=== PATIENT | female | born 1945 | race African-American/Black ===

== ENCOUNTER 2017-06-23 21:27 | Inpatient (IN) | payer MEDICARE, MEDICAID ==
[~2017-06-23] VITALS: Ht 162.6 cm; Wt 88.2 kg
[2017-06-23 22:40] LABS: EOSINOPHILS % 2.2 % (0.0-5.0); HEMATOCRIT. 49.5 % (36.0-48.0); HEMOGLOBIN. 16.6 g/dL (12.0-16.0); LYMPHOCYTES % 30.3 % (20.0-50.0); MEAN CORPUSCULAR HEMOGLOBIN 29.7 pg (28.0-32.0); MEAN CORPUSCULAR VOLUME 88.8 fL (81.0-99.0); MEAN PLATELET VOLUME 9.6 fl (7.4-10.4); MONOCYTES % 10.9 % (2.0-8.0); NEUTROPHILS % 55.6 % (40.0-76.0); PLATELET 238 x1000/uL (130-400); RED BLOOD CELL COUNT 5.57 mill/uL (4.2-5.4); RED CELL DISTRIBUTION WIDTH 14.6 % (11.6-14.6)
[2017-06-23 22:47] LABS: PROTHROMBIN TIME 10.7 sec (9.4-11.6)
[2017-06-23 22:54] LABS: CARBON DIOXIDE 27 mEq/L (21-32); CHLORIDE 112 mEq/L (98-107); TROPONIN I 0.03 ng/mL (0.00-0.04)
[2017-06-23] MEDS ORDERED: ASPIRIN 81MG TABLET PO ONE (23:00)
[2017-06-23] MEDS ORDERED: HYDROCODONE/ACETAMINOPHEN 5/325MG TABLET PO PRN (23:30)
[2017-06-23] MEDS ORDERED: MORPHINE SULFATE 2 MG/ML CPJ (NOT FOR IM USE) IV PRN (23:30)
[2017-06-23] MEDS ORDERED: ACETAMINOPHEN 325MG TABLET PO PRN (23:30)
[2017-06-24 04:00] VITALS: BP 169/95
[2017-06-24 04:12] VITALS: BP 169/95
[2017-06-24] MEDS ORDERED: IBUP-2029 (07:42)
[2017-06-24] MEDS ORDERED: CIPR-213 (07:42)
[2017-06-24] MEDS ORDERED: ALPR2TAB97 (07:42)
[2017-06-24] MEDS ORDERED: DOXY100C2 (07:42)
[2017-06-24] MEDS ORDERED: METR500T4 (07:42)
[2017-06-24] MEDS ORDERED: AZIT250T6 (07:42)
[2017-06-24] MEDS ORDERED: ALBU18HF2 (07:42)
[2017-06-24] MEDS ORDERED: LEVO500T89 (07:42)
[2017-06-24] MEDS ORDERED: NIFEDICAL (07:42)
[2017-06-24] MEDS ORDERED: CLON0.2T (07:42)
[2017-06-24] MEDS ORDERED: AMOX-CLAV (07:42)
[2017-06-24] MEDS ORDERED: PANT40TA4 (07:42)
[2017-06-24] MEDS ORDERED: FLUT1DIS2 (07:42)
[2017-06-24] MEDS ORDERED: NIFE60TA64 (07:42)
[2017-06-24] MEDS ORDERED: ARIP20TA9 (07:42)
[2017-06-24] MEDS ORDERED: AMOX500T2 (07:42)
[2017-06-24] MEDS ORDERED: DULO60CA63 (07:42)
[2017-06-24 08:00] VITALS: BP 168/90
[2017-06-24] MEDS: ASPIRIN 81MG EC TABLET PO SCH (08:10)
[2017-06-24] MEDS: FERROUS SULFATE 325MG TABLET PO SCH (08:10)
[2017-06-24] MEDS: ENOXAPARIN 40MG/0.4ML SYR SUBCUT SCH ×2 (08:11→08:14)
[2017-06-24] MEDS ORDERED: POTASSIUM CHLORIDE 20MEQ/PACKET PO SCH (09:00)
[2017-06-24] MEDS ORDERED: IOHEXOL-350 100 ML BOTTLE ONE (09:04)
[2017-06-24] MEDS ORDERED: SODIUM CHLORIDE 0.9% 10ML VIAL ONE (09:04)
[2017-06-24 09:52] LABS: CREATINE KINASE MB FRACTION 2.4 ng/mL (0.5-3.6)
[2017-06-24 12:00] VITALS: BP 156/101
[2017-06-24] MEDS ORDERED: ALBUTEROL (0.083%) 2.5MG/3ML NEB HHN PRN (12:45)
[2017-06-24] MEDS: CLONIDINE 0.1MG TABLET PO PRN ×2 (12:55→22:15)
[2017-06-24] MEDS: FUROSEMIDE 40MG/4ML VIAL IVP SCH (13:02)
[2017-06-24 14:51] LABS: CREATINE KINASE MB FRACTION 2.4 ng/mL (0.5-3.6)
[2017-06-24 16:00] VITALS: BP 142/91
[2017-06-24 20:15] VITALS: BP 157/123
[2017-06-24] MEDS: AMLODIPINE 5MG TABLET PO SCH (21:10)
[2017-06-24 23:20] LABS: CLARITY URINE CLEAR (CLEAR); COLOR URINE YELLOW (YELLOW); GLUCOSE URINE NEGATIVE (NEGATIVE); KETONES URINE NEGATIVE (NEGATIVE); LEUKOCYTE ESTERASE URINE NEGATIVE (NEGATIVE); NITRITE URINE NEGATIVE (NEGATIVE); OCCULT BLOOD URINE 1+ (NEGATIVE); PROTEIN URINE NEGATIVE (NEGATIVE); SPECIFIC GRAVITY URINE 1.041 (1.005-1.030); UROBILINOGEN URINE 0.2 E.U./dL (0.2-1.0)
[2017-06-24 23:40] LABS: *AMPHETAMINES SCREEN URINE NEGATIVE (NEGATIVE); *BARBITURATES SCREEN URINE NEGATIVE (NEGATIVE); *BENZODIAZEPINES SCREEN URINE NEGATIVE (NEGATIVE); *COCAINE SCREEN URINE PRESUMTIVE POSITIVE (NEGATIVE); CANNABINOID URINE SCREEN NEGATIVE (NEGATIVE); METHADONE URINE SCREEN NEGATIVE (NEGATIVE); OPIATES URINE SCREEN NEGATIVE (NEGATIVE); PHENCYCLIDINE URINE SCREEN NEGATIVE (NEGATIVE)
[2017-06-25] VITALS: BP 152/92
[2017-06-25 04:00] VITALS: BP 152/102
[2017-06-25 06:30] LABS: BASOPHILS % 0.7 % (0.0-2.0); EOSINOPHILS % 6.1 % (0.0-5.0); HEMATOCRIT. 48.6 % (36.0-48.0); HEMOGLOBIN. 16.4 g/dL (12.0-16.0); LYMPHOCYTES % 40.8 % (20.0-50.0); MEAN CORPUSCULAR HEMOGLOBIN 30.1 pg (28.0-32.0); MEAN CORPUSCULAR VOLUME 89.6 fL (81.0-99.0); MEAN PLATELET VOLUME 9.4 fl (7.4-10.4); MONOCYTES % 9.6 % (2.0-8.0); NEUTROPHILS % 42.8 % (40.0-76.0); PLATELET 213 x1000/uL (130-400); RED BLOOD CELL COUNT 5.42 mill/uL (4.2-5.4); RED CELL DISTRIBUTION WIDTH 14.4 % (11.6-14.6)
[2017-06-25 07:49] VITALS: BP 182/75
[2017-06-25] MEDS: FERROUS SULFATE 325MG TABLET PO SCH (08:09)
[2017-06-25] MEDS: ASPIRIN 81MG EC TABLET PO SCH (08:09)
[2017-06-25] MEDS: FUROSEMIDE 40MG/4ML VIAL IVP SCH (08:09)
[2017-06-25] MEDS: AMLODIPINE 5MG TABLET PO SCH ×2 (08:09→20:27)
[2017-06-25] MEDS: CLONIDINE 0.1MG TABLET PO PRN ×2 (08:10→18:30)
[2017-06-25] MEDS: ENOXAPARIN 40MG/0.4ML SYR SUBCUT SCH (08:10)
[2017-06-25 08:29] LABS: CARBON DIOXIDE 31 mEq/L (21-32); CHLORIDE 104 mEq/L (98-107); PHOSPHORUS 3.7 mg/dL (2.5-4.9)
[2017-06-25] MEDS ORDERED: REGADENOSON 0.4 MG/5 ML IV NR (09:30)
[2017-06-25] MEDS ORDERED: POTASSIUM CHLORIDE 20MEQ TABLET SR PO NR (09:30)
[2017-06-25] MEDS: HYDRALAZINE HCL 50MG TABLET PO SCH ×2 (10:17→22:08)
[2017-06-25 10:44] LABS: T4 FREE 0.98 ng/dL (0.76-1.46)
[2017-06-25 12:00] VITALS: BP 124/93
[2017-06-25] MEDS: POTASSIUM CHLORIDE 20MEQ TABLET SR PO SCH (12:00)
[2017-06-25] MEDS: METOPROLOL TARTRATE 25MG TABLET PO SCH ×2 (13:40→22:07)
[2017-06-25] MEDS ORDERED: LEVOFLOXACIN 500MG PREMIX 100 ML IV SCH (14:00)
[2017-06-25 15:09] LABS: CREATINE KINASE 103 IU/L (26-192); TROPONIN I < 0.02 ng/mL (0.00-0.04)
[2017-06-25 16:00] VITALS: BP 158/88
[2017-06-25] MEDS: NICOTINE 14MG PATCH TD SCH (16:05)
[2017-06-25 20:00] VITALS: BP 184/98
[2017-06-25 23:59] LABS: CREATINE KINASE 83 IU/L (26-192); CREATINE KINASE MB FRACTION 0.9 ng/mL (0.5-3.6); TROPONIN I < 0.02 ng/mL (0.00-0.04)
[2017-06-26] VITALS: BP 142/73
[2017-06-26] MEDS: CLONIDINE 0.1MG TABLET PO PRN (02:12)
[2017-06-26 04:00] VITALS: BP 162/89
[2017-06-26] MEDS: HYDRALAZINE HCL 50MG TABLET PO SCH (06:14)
[2017-06-26 08:00] VITALS: BP 142/80
[2017-06-26] MEDS ORDERED: ENOXAPARIN 30MG/0.3ML SYR SUBCUT SCH (09:00)
[2017-06-26 09:13] LABS: BASOPHILS % 0.7 % (0.0-2.0); EOSINOPHILS % 5.3 % (0.0-5.0); HEMATOCRIT. 49.3 % (36.0-48.0); HEMOGLOBIN. 16.7 g/dL (12.0-16.0); LYMPHOCYTES % 31.4 % (20.0-50.0); MEAN CORPUSCULAR HEMOGLOBIN 29.8 pg (28.0-32.0); MEAN CORPUSCULAR VOLUME 88.2 fL (81.0-99.0); MEAN PLATELET VOLUME 9.7 fl (7.4-10.4); MONOCYTES % 8.9 % (2.0-8.0); NEUTROPHILS % 53.7 % (40.0-76.0); PLATELET 226 x1000/uL (130-400); RED BLOOD CELL COUNT 5.59 mill/uL (4.2-5.4); RED CELL DISTRIBUTION WIDTH 14.2 % (11.6-14.6)
[2017-06-26 09:36] LABS: CARBON DIOXIDE 27 mEq/L (21-32); CHLORIDE 103 mEq/L (98-107); CREATINE KINASE 69 IU/L (26-192); TROPONIN I < 0.02 ng/mL (0.00-0.04)
[2017-06-26] MEDS: POTASSIUM CHLORIDE 20MEQ TABLET SR PO SCH (09:58)
[2017-06-26] MEDS: FUROSEMIDE 40MG/4ML VIAL IVP SCH (09:58)
[2017-06-26] MEDS: AMLODIPINE 5MG TABLET PO SCH (09:58)
[2017-06-26] MEDS: ASPIRIN 81MG EC TABLET PO SCH (09:59)
[2017-06-26] MEDS: FERROUS SULFATE 325MG TABLET PO SCH (09:59)
[2017-06-26] MEDS: NICOTINE 14MG PATCH TD SCH (09:59)
[2017-06-26] MEDS: METOPROLOL TARTRATE 25MG TABLET PO SCH (09:59)
[2017-06-26 10:00] VITALS: BP 146/110
[2017-06-26 10:39] VITALS: BP 148/110
[2017-06-26] MEDS ORDERED: POTASSIUM CHLORIDE 20MEQ TABLET SR PO SCH (11:00)
[2017-06-26 12:00] VITALS: BP 163/99
== END 2017-06-26 13:40 | disposition home or self-care (01) | DRG 918 ==
LOC: ER 21:27 → 5EST 23:19 → SUPCPDRO 23:24 → EDBEDREQTM 23:29 → EDBEDREQ 23:29 → ENRESERV 06-24 01:18
PROVIDERS: ADMIT Internal Medicine Nephrology; ATTEND Internal Medicine Nephrology
DX: T40.5X1A Poisoning by cocaine, accidental (unintentional), initial encounter (principal); I67.82 Cerebral ischemia; J44.9 Chronic obstructive pulmonary disease, unspecified; N39.0 Urinary tract infection, site not specified; F20.9 Schizophrenia, unspecified; F14.10 Cocaine abuse, uncomplicated; I10 Essential (primary) hypertension; J45.909 Unspecified asthma, uncomplicated; E78.1 Pure hyperglyceridemia; F17.200 Nicotine dependence, unspecified, uncomplicated; K21.9 Gastro-esophageal reflux disease without esophagitis; K80.20 Calculus of gallbladder without cholecystitis without obstruction; Z79.1 Long term (current) use of non-steroidal anti-inflammatories (NSAID); Z79.2 Long term (current) use of antibiotics; Z79.899 Other long term (current) drug therapy; Z79.51 Long term (current) use of inhaled steroids; R07.89 Other chest pain
CPT/HCPCS: 36415; 70450; 71010; 71275; 80048; 80053; 80061; 80305; 81001; 82550; 82553; 83036; 83690; 83735; 83880; 84100; 84439; 84443; 84484; 85025; 85379; 85610; 87086; 93005; 93306; 93970; 99285; A4216; A6261; J1650; J1940; J1956; J7050; Q9967

== ENCOUNTER 2017-06-28 23:09 | Inpatient (IN) | payer MEDICARE, MEDICAID ==
[~2017-06-28] VITALS: Ht 153.4 cm; Wt 88.5 kg
[~2017-06-28 23:09] MED LIST: ALBU18HF2; ALPR2TAB97; AMOX-CLAV; AMOX500T2; ARIP20TA9; AZIT250T6; CIPR-213; CLON0.2T; DOXY100C2; DULO60CA63; FLUT1DIS2; IBUP-2029; LEVO500T89; METR500T4; NIFE60TA64; NIFEDICAL; PANT40TA4
[2017-06-28] MEDS ORDERED: ASPIRIN 81MG TABLET PO ONE (23:45)
[2017-06-28] MEDS ORDERED: LABETALOL HCL 20MG/4ML CARPUJECT IV ONE (23:45)
[2017-06-29 01:08] LABS: BASOPHILS % 0.6 % (0.0-2.0); EOSINOPHILS % 5.7 % (0.0-5.0); HEMATOCRIT. 48.6 % (36.0-48.0); HEMOGLOBIN. 16.4 g/dL (12.0-16.0); LYMPHOCYTES % 38.4 % (20.0-50.0); MEAN CORPUSCULAR HEMOGLOBIN 29.9 pg (28.0-32.0); MEAN CORPUSCULAR VOLUME 88.4 fL (81.0-99.0); MEAN PLATELET VOLUME 9.5 fl (7.4-10.4); MONOCYTES % 11.1 % (2.0-8.0); NEUTROPHILS % 44.2 % (40.0-76.0); PLATELET 202 x1000/uL (130-400); RED CELL DISTRIBUTION WIDTH 14.4 % (11.6-14.6)
[2017-06-29 01:15] LABS: CARBON DIOXIDE 29 mEq/L (21-32); CHLORIDE 104 mEq/L (98-107); ETHANOL BLOOD < 10 mg/dL; TROPONIN I < 0.02 ng/mL (0.00-0.04)
[2017-06-29 09:16] VITALS: BP 154/82
[2017-06-29 09:20] VITALS: BP 155/82
[2017-06-29] MEDS ORDERED: PNEUMOCOCCAL 23-VAL P-SAC VAC 0.5 ML IM ONE (10:00)
[2017-06-29] MEDS ORDERED: HYDROCODONE/ACETAMINOPHEN 5/325MG TABLET PO PRN (11:30)
[2017-06-29] MEDS ORDERED: HYDROCODONE/ACETAMINOPHEN 10/325MG TABLET PO PRN (11:30)
[2017-06-29] MEDS ORDERED: DIPHENHYDRAMINE 50MG/ML VIAL IV PRN (11:30)
[2017-06-29] MEDS ORDERED: DOCUSATE SODIUM 100MG CAPSULE PO PRN (11:30)
[2017-06-29] MEDS ORDERED: ACETAMINOPHEN 325MG TABLET PO PRN (11:30)
[2017-06-29] MEDS ORDERED: IPRATROPIUM/ALBUTEROL 0.5-3(2.5)MG/3ML NEB INH PRN (11:30)
[2017-06-29] MEDS ORDERED: ENOXAPARIN 40MG/0.4ML SYR SUBCUT SCH (11:30)
[2017-06-29] MEDS ORDERED: DEXTROSE 50% WATER 50ML SYRINGE IV PRN (11:30)
[2017-06-29] MEDS ORDERED: LORAZEPAM 1MG TABLET PO PRN (11:30)
[2017-06-29] MEDS: ENOXAPARIN 30MG/0.3ML SYR SUBCUT SCH ×2 (11:50→21:09)
[2017-06-29] MEDS: INSULIN LISPRO 100 UNITS/ML SUBCUT SCH ×3 (11:55→21:00)
[2017-06-29] MEDS: BLOOD SUGAR DIAGNOSTIC STRIP TEST SCH ×3 (11:55→21:04)
[2017-06-29] MEDS ORDERED: INSULIN LISPRO 100 UNITS/ML SUBCUT SCH ×3 (12:15)
[2017-06-29 16:57] LABS: CREATINE KINASE 112 IU/L (26-192); TROPONIN I < 0.02 ng/mL (0.00-0.04)
[2017-06-29 20:00] VITALS: BP 180/104
[2017-06-29] MEDS: CLONIDINE 0.1MG TABLET PO PRN (21:05)
[2017-06-30] VITALS (11 sets, daily range): BP systolic 128–185; BP diastolic 84–110
[2017-06-30 01:11] LABS: TROPONIN I 0.02 ng/mL (0.00-0.04)
[2017-06-30] MEDS: CLONIDINE 0.1MG TABLET PO PRN ×2 (06:05→20:58)
[2017-06-30 06:14] LABS: BASOPHILS % 0.6 % (0.0-2.0); EOSINOPHILS % 4.3 % (0.0-5.0); HEMATOCRIT. 49.9 % (36.0-48.0); HEMOGLOBIN. 16.7 g/dL (12.0-16.0); LYMPHOCYTES % 35.5 % (20.0-50.0); MEAN CORPUSCULAR HEMOGLOBIN 29.9 pg (28.0-32.0); MEAN CORPUSCULAR VOLUME 89.4 fL (81.0-99.0); MEAN PLATELET VOLUME 9.5 fl (7.4-10.4); NEUTROPHILS % 46.6 % (40.0-76.0); PLATELET 213 x1000/uL (130-400); RED BLOOD CELL COUNT 5.59 mill/uL (4.2-5.4); RED CELL DISTRIBUTION WIDTH 14.1 % (11.6-14.6)
[2017-06-30] MEDS: BLOOD SUGAR DIAGNOSTIC STRIP TEST SCH ×3 (06:41→21:00)
[2017-06-30] MEDS: INSULIN LISPRO 100 UNITS/ML SUBCUT SCH ×3 (06:42→21:00)
[2017-06-30 06:44] LABS: CARBON DIOXIDE 28 mEq/L (21-32); CHLORIDE 106 mEq/L (98-107); HDL CHOLESTEROL 49 mg/dL (40-59); LDL CHOLESTEROL 78 mg/dL (5-100)
[2017-06-30 08:12] LABS: CLARITY URINE CLEAR (CLEAR); COLOR URINE YELLOW (YELLOW); GLUCOSE URINE NEGATIVE (NEGATIVE); KETONES URINE NEGATIVE (NEGATIVE); LEUKOCYTE ESTERASE URINE NEGATIVE (NEGATIVE); NITRITE URINE NEGATIVE (NEGATIVE); OCCULT BLOOD URINE TRACE (NEGATIVE); PROTEIN URINE NEGATIVE (NEGATIVE); SPECIFIC GRAVITY URINE 1.012 (1.005-1.030); UROBILINOGEN URINE 0.2 E.U./dL (0.2-1.0)
[2017-06-30 08:26] LABS: BG BASE EXCESS 0.5 mmol/L (-2.0-2.0); BG DEOXYHEMOGLOBIN 3.3 % (0.0-5.0); BG FRACTION INSPIRED OXYGEN 21; BG HCO3 ACT 26.1 mmol/L (22.0-26.0); BG METHEMOGLOBIN 0.4 % (0.0-1.5); BG OXYGEN SATURATION 96.7 % (92.0-98.5); BG OXYHEMOGLOBIN 95.3 % (94.0-97.0); BG PCO2 45.3 mmHg (35.0-45.0); BG PH 7.379 (7.350-7.450); BG PO2 89.5 mmHg (75.0-100.0); BG SAMPLE SITE RIGHT BRACHIAL; BG TOTAL HEMOGLOBIN 16.7 g/dL (12.0-18.0); BG VENT MODE ROOM AIR
[2017-06-30 08:40] LABS: *AMPHETAMINES SCREEN URINE NEGATIVE (NEGATIVE); *BARBITURATES SCREEN URINE NEGATIVE (NEGATIVE); *BENZODIAZEPINES SCREEN URINE NEGATIVE (NEGATIVE); *COCAINE SCREEN URINE PRESUMTIVE POSITIVE (NEGATIVE); CANNABINOID URINE SCREEN NEGATIVE (NEGATIVE); METHADONE URINE SCREEN NEGATIVE (NEGATIVE); OPIATES URINE SCREEN NEGATIVE (NEGATIVE); PHENCYCLIDINE URINE SCREEN NEGATIVE (NEGATIVE)
[2017-06-30] MEDS: ENOXAPARIN 30MG/0.3ML SYR SUBCUT SCH (09:17)
[2017-06-30 11:09] LABS: T4 FREE 1.03 ng/dL (0.76-1.46)
[2017-06-30] MEDS ORDERED: REGADENOSON 0.4 MG/5 ML IV ONE (13:00)
[2017-06-30 16:48] LABS: CREATINE KINASE 78 IU/L (26-192); CREATINE KINASE MB FRACTION 1.3 ng/mL (0.5-3.6); TROPONIN I < 0.02 ng/mL (0.00-0.04)
[2017-07-01 00:07] LABS: CREATINE KINASE 67 IU/L (26-192); CREATINE KINASE MB FRACTION 1.1 ng/mL (0.5-3.6); TROPONIN I < 0.02 ng/mL (0.00-0.04)
[2017-07-01 04:00] VITALS: BP 166/76
[2017-07-01] MEDS: BLOOD SUGAR DIAGNOSTIC STRIP TEST SCH ×4 (06:57→21:00)
[2017-07-01] MEDS: INSULIN LISPRO 100 UNITS/ML SUBCUT SCH ×4 (06:57→21:00)
[2017-07-01 07:46] LABS: BASOPHILS % 0.6 % (0.0-2.0); HEMATOCRIT. 48.4 % (36.0-48.0); HEMOGLOBIN. 16.2 g/dL (12.0-16.0); LYMPHOCYTES % 46.3 % (20.0-50.0); MEAN CORPUSCULAR HEMOGLOBIN 29.8 pg (28.0-32.0); MEAN CORPUSCULAR VOLUME 88.9 fL (81.0-99.0); MEAN PLATELET VOLUME 9.5 fl (7.4-10.4); MONOCYTES % 10.8 % (2.0-8.0); NEUTROPHILS % 37.3 % (40.0-76.0); PLATELET 212 x1000/uL (130-400); RED BLOOD CELL COUNT 5.45 mill/uL (4.2-5.4); RED CELL DISTRIBUTION WIDTH 14.4 % (11.6-14.6)
[2017-07-01 08:00] VITALS: BP 167/78
[2017-07-01 08:04] LABS: CARBON DIOXIDE 27 mEq/L (21-32); CHLORIDE 107 mEq/L (98-107); CREATINE KINASE 53 IU/L (26-192); CREATINE KINASE MB FRACTION 1.7 ng/mL (0.5-3.6); TROPONIN I < 0.02 ng/mL (0.00-0.04)
[2017-07-01] MEDS: ENOXAPARIN 40MG/0.4ML SYR SUBCUT SCH (08:43)
[2017-07-01] MEDS ORDERED: ALBU18HF2 IH (10:50)
[2017-07-01] MEDS ORDERED: NIFE60TA7 PO (10:50)
[2017-07-01] MEDS ORDERED: FLUT16SP15 BOTHNSTRLS (10:50)
[2017-07-01] MEDS ORDERED: REGADENOSON 0.4 MG/5 ML IV ONE (11:05)
[2017-07-01] MEDS: CLONIDINE 0.1MG TABLET PO PRN (12:53)
[2017-07-01 14:42] VITALS: BP 157/85
[2017-07-01 16:00] VITALS: BP 161/99
[2017-07-01] MEDS: NIFEDIPINE XL 60MG TAB PO SCH (16:44)
[2017-07-01 20:00] VITALS: BP_SYST 158
[2017-07-02] VITALS: BP 156/84
[2017-07-02 04:00] VITALS: BP 152/85
[2017-07-02] MEDS: BLOOD SUGAR DIAGNOSTIC STRIP TEST SCH (06:45)
[2017-07-02] MEDS: INSULIN LISPRO 100 UNITS/ML SUBCUT SCH (06:47)
[2017-07-02 08:00] VITALS: BP 144/91
[2017-07-02] MEDS: ENOXAPARIN 40MG/0.4ML SYR SUBCUT SCH (09:23)
[2017-07-02] MEDS: CLONIDINE 0.1MG TABLET PO PRN (09:23)
[2017-07-02] MEDS: NIFEDIPINE XL 60MG TAB PO SCH (09:24)
[2017-07-02 09:41] VITALS: BP 109/83
== END 2017-07-02 10:00 | disposition home or self-care (01) | DRG 816 ==
LOC: ER 23:09 → 5WST 06-29 06:39 → ENRESERV 06-29 08:09 → CANBEDREQ 06-29 08:42
PROVIDERS: ADMIT Internal Medicine; ATTEND Internal Medicine
DX: T40.5X1A Poisoning by cocaine, accidental (unintentional), initial encounter (principal); J44.9 Chronic obstructive pulmonary disease, unspecified; F20.9 Schizophrenia, unspecified; R07.89 Other chest pain; I10 Essential (primary) hypertension; E78.5 Hyperlipidemia, unspecified; F17.210 Nicotine dependence, cigarettes, uncomplicated; F32.9 Major depressive disorder, single episode, unspecified; Z82.49 Family history of ischemic heart disease and other diseases of the circulatory system; Z71.51 Drug abuse counseling and surveillance of drug abuser
CPT/HCPCS: 36415; 36600; 71010; 76705; 78452; 80048; 80053; 80061; 80305; 81001; 82375; 82550; 82553; 82805; 82962; 83036; 83605; 83690; 83880; 84439; 84443; 84484; 85025; 85379; 90732; 93005; 93017; 93306; 93970; 99291; A9500; G0482; J1650; J2785; J3490

== ENCOUNTER 2018-12-17 18:02 | Emergency (ER) | payer MEDICARE, MEDICAID ==
[~2018-12-17] VITALS: Ht 167.6 cm; Wt 90.0 kg
[~2018-12-17 18:02] MED LIST changes: -ALBU18HF2; +ALBU18HF2 IH; -ALPR2TAB97; -AMOX-CLAV; -AMOX500T2; -ARIP20TA9; -AZIT250T6; -CIPR-213; -DOXY100C2; -DULO60CA63; +FLUT16SP15 BOTHNSTRLS; -FLUT1DIS2; -IBUP-2029; -LEVO500T89; -METR500T4; -NIFE60TA64; +NIFE60TA77 PO; -NIFEDICAL; -PANT40TA4
[2018-12-17] MEDS ORDERED: SODIUM CHLORIDE 0.9% 1,000 ML IV ONE (19:08)
[2018-12-17] MEDS ORDERED: ONDANSETRON HCL 4MG/2ML INJ IV STA (19:08)
[2018-12-17] MEDS ORDERED: MECLIZINE 25MG TABLET PO ONE (19:15)
[2018-12-17 19:33] LABS: CHLORIDE 107 mEq/L (98-107)
[2018-12-17 19:41] LABS: BASOPHILS % 0.5 % (0.0-2.0); EOSINOPHILS % 2.5 % (0.0-5.0); HEMATOCRIT. 50.4 % (36.0-48.0); HEMOGLOBIN. 16.7 g/dL (12.0-16.0); LYMPHOCYTES % 23.8 % (20.0-50.0); MEAN CORPUSCULAR HEMOGLOBIN 29.7 pg (28.0-32.0); MEAN CORPUSCULAR VOLUME 89.6 fL (81.0-99.0); MEAN PLATELET VOLUME 9.1 fl (7.4-10.4); MONOCYTES % 9.8 % (2.0-8.0); NEUTROPHILS % 63.4 % (40.0-76.0); PLATELET 285 x1000/uL (130-400); RED BLOOD CELL COUNT 5.62 mill/uL (4.2-5.4); RED CELL DISTRIBUTION WIDTH 14.8 % (11.6-14.6)
[2018-12-17 20:10] LABS: CLARITY URINE CLEAR (CLEAR); COLOR URINE YELLOW (YELLOW); KETONES URINE NEGATIVE (NEGATIVE); LEUKOCYTE ESTERASE URINE NEGATIVE (NEGATIVE); NITRITE URINE NEGATIVE (NEGATIVE); OCCULT BLOOD URINE NEGATIVE (NEGATIVE); PROTEIN URINE 3+ (NEGATIVE); SPECIFIC GRAVITY URINE 1.025 (1.005-1.030)
[2018-12-17 21:13] VITALS: BP 168/78
== END 2018-12-17 21:31 | disposition home or self-care (01) ==
LOC: ER 18:02
DX: H81.10 Benign paroxysmal vertigo, unspecified ear (principal); J45.909 Unspecified asthma, uncomplicated; F20.0 Paranoid schizophrenia; I10 Essential (primary) hypertension; F17.210 Nicotine dependence, cigarettes, uncomplicated
CPT/HCPCS: 36415; 80053; 81003; 85025; 93005; 96361; 96374; 99284; J2405; J7030; J8597